=== PATIENT | female | born 1995 | race Caucasian/White ===

== ENCOUNTER 2019-01-16 18:06 | Emergency (ER) | payer BC ==
[~2019-01-16] VITALS: Ht 162.6 cm; Wt 61.0 kg
[2019-01-16 18:26] VITALS: BP 110/60
[2019-01-16 19:12] LABS: URINE HCG POSITIVE (NEG)
[2019-01-16 19:13] LABS: CLARITY,URINE CLEAR (Clear); COLOR,URINE YELLOW (Yellow); GLUCOSE, URINE NEGATIVE (Neg); KETONES,URINE NEGATIVE (Neg); LEUKOCYTE ESTERASE ,URINE NEGATIVE (Neg); NITRITES, URINE NEGATIVE (Neg); OCCULT BLOOD,URINE SMALL (Neg); PROTEIN,URINE NEGATIVE (Neg); UROBILINOGEN,URINE 0.2 E.U/dL (0.2-1.0)
[2019-01-16 19:23] LABS: UA COLLECTION TYPE CLN CATCH MIDSTREAM
[2019-01-16 19:24] LABS: BACTERIA,URINE NONE SEEN /HPF (Neg); RBC,URINE 0-2 /HPF (0-2); SQUAMOUS EPITHELIAL CELL,UR FEW /LPF (FEW); WBC,URINE NONE SEEN /HPF (0-4)
== END 2019-01-16 21:25 | disposition home or self-care (01) ==
LOC: ER 18:07
DX: O20.0 Threatened abortion (principal); Z3A.08 8 weeks gestation of pregnancy
CPT/HCPCS: 36415; 76801; 81001; 81025; 84702; 99284

== ENCOUNTER 2019-02-09 10:42 | Emergency (ER) | payer BC ==
[~2019-02-09] VITALS: Ht 165.1 cm; Wt 63.0 kg
[2019-02-09] MEDS ORDERED: ondansetron/PF 4mg/2ml inj IV ONE (12:20)
[2019-02-09] MEDS ORDERED: morphine 4 MG/ML inj SYRINge IV PRN (12:20)
[2019-02-09] MEDS ORDERED: normal saline 1000ML IV soln IVB ONE (12:20)
[2019-02-09] MEDS ORDERED: ondansetron 4mg rapidly disintigrating tab PO ONE (12:45)
[2019-02-09] MEDS ORDERED: acetaminophen 325mg tablet PO ONE (12:45)
[2019-02-09 12:47] LABS: BASOPHILS % (AUTO) 0.2 % (0-1); EOSINOPHILS # (AUTO) 0.1 X10'3 (0-0.9); EOSINOPHILS % (AUTO) 0.5 % (0-6); HEMATOCRIT 37.7 % (35.0-45.0); LYMPHOCYTES # (AUTO) 1.9 X10'3 (1.1-4.8); MEAN CORPUSCULAR HEMOGLOBIN 31.1 PG (27.0-31.0); MEAN CORPUSCULAR HGB CONC 34.6 g/dL (33.0-36.5); MEAN CORPUSCULAR VOLUME 89.7 FL (78-98); MEAN PLATELET VOLUME 8.1 FL (7.4-10.4); MONOCYTES # (AUTO) 0.8 X10'3 (0-0.9); NEUTROPHILS # (AUTO) 8.4 X10'3 (1.8-7.7); NEUTROPHILS % (AUTO) 75.3 % (42-75); PLATELET COUNT 249 X10'3 (140-440); RED CELL DISTRIBUTION WIDTH 13.4 % (11.5-14.5); WHITE BLOOD COUNT 11.1 X10'3 (4.5-11.0)
[2019-02-09 13:02] LABS: ALANINE AMINOTRANSFERASE 16 U/L (12-78); ALBUMIN 3.6 G/DL (3.4-5.0); ALKALINE PHOSPHATASE 81 IU/L (46-116); ANION GAP 8 (8-16); ASPARTATE AMINO TRANSFERASE 9 U/L (10-37); BILIRUBIN,TOTAL 0.2 MG/DL (0.1-1.0); BLOOD UREA NITROGEN 9 MG/DL (7-18); BUN/CREATININE RATIO 16.1 (6.6-38.0); CALCIUM 9.3 MG/DL (8.5-10.1); CHLORIDE 104 MMOL/L (99-107); CREATININE 0.56 MG/DL (0.40-0.90); GLUCOSE 66 MG/DL (70-104); SODIUM 139 MMOL/L (135-145); TOTAL CARBON DIOXIDE 27.2 MMOL/L (24-32); TOTAL PROTEIN 7.1 G/DL (6.4-8.2); eGFR > 90 ML/MIN
[2019-02-09 13:10] LABS: PROTHROMBIN TIME 10.1 SECONDS (9.0-12.0)
[2019-02-09 13:24] LABS: BETA HCG,QUANTITATIVE 55196 mIU/ml
[2019-02-09] MEDS ORDERED: ONDA4TAB6 PO (14:21)
[2019-02-09 14:29] VITALS: BP 116/66
[2019-02-09 15:04] LABS: CLARITY,URINE CLOUDY (Clear); COLOR,URINE YELLOW (Yellow); GLUCOSE, URINE NEGATIVE (Neg); KETONES,URINE NEGATIVE (Neg); LEUKOCYTE ESTERASE ,URINE NEGATIVE (Neg); NITRITES, URINE NEGATIVE (Neg); OCCULT BLOOD,URINE LARGE (Neg); PROTEIN,URINE TRACE mg/dl (Neg); UA COLLECTION TYPE CLN CATCH MIDSTREAM; UROBILINOGEN,URINE 0.2 E.U/dL (0.2-1.0)
[2019-02-09 15:13] LABS: BACTERIA,URINE 1+ /HPF (Neg); RBC,URINE TNTC /HPF (0-2); SQUAMOUS EPITHELIAL CELL,UR MANY /LPF (FEW); WBC,URINE 0-4 /HPF (0-4)
== END 2019-02-09 14:31 | disposition home or self-care (01) ==
LOC: ER 10:42
DX: O20.9 Hemorrhage in early pregnancy, unspecified (principal); Z3A.11 11 weeks gestation of pregnancy; Z79.899 Other long term (current) drug therapy
CPT/HCPCS: 36415; 76801; 76802; 80053; 81001; 84702; 85025; 85610; 86885; 86900; 86901; 99284

== ENCOUNTER 2019-02-12 22:11 | Emergency (ER) | payer BC ==
[~2019-02-12] VITALS: Ht 165.1 cm; Wt 63.2 kg
[~2019-02-12 22:11] MED LIST: ONDA4TAB6 PO
[2019-02-12 23:48] VITALS: BP 123/72
== END 2019-02-12 23:50 | disposition home or self-care (01) ==
LOC: ER 22:11
DX: O20.0 Threatened abortion (principal); Z3A.12 12 weeks gestation of pregnancy; Z79.899 Other long term (current) drug therapy
CPT/HCPCS: 99284